=== PATIENT | male | born 1985 | race Hispanic/Latino ===

== ENCOUNTER → 2022-05-25 16:02 | Outpatient (CLI) | payer SELFPAY ==
[2022-05-29 02:08] LABS: Chlamydia trachomatis NAA Negative (Negative); Neisseria gonorrhoeae NAA Negative (Negative)
== END ==
PROVIDERS: PCP Physician Assistant; Visit Provider Physician Assistant
DX: B35.6 Tinea cruris (principal)
CPT/HCPCS: 87491; 87591